=== PATIENT | male | born 1945 | race Caucasian/White ===

== ENCOUNTER → 2020-10-24 15:37 | Outpatient (CLI) | payer MEDICARE, SELFPAY ==
--- NOTE | 2020-10-24 15:45 | DI.RAD.S_ITS ---
PROCEDURE: XR LUMBAR SPINE MIN 4V INDICATIONS: Lumbar radiculopathy TECHNIQUE: 5 views of the lumbar spine were acquired, including bilateral oblique views. COMPARISON: None. FINDINGS: Bones: 5 nonrib-bearing vertebrae are present. There is normal bony alignment. No vertebral body compression fractures. No suspicious bony lesions. Mild degenerative disc changes noted throughout the lumbar spine. Soft tissues: Overlying bowel gas pattern is normal. No suspicious soft tissue calcifications. Oblique images: No pars defects. IMPRESSION: 1. Mild multilevel degenerative disc disease. 2. No fracture. No acute osseous lesion. If symptoms and/or clinical suspicion for pathology persists, evaluation with MRI should be considered for further assessment. Dictated by: Ghada Samano MD, PhD on 10/24/2020 at 16:04 Approved by: Ghada Samano MD, PhD on 10/24/2020 at 16:05
== END ==
PROVIDERS: PCP Nurse Practitioner Family; Referring Provider Physical Medicine & Rehabilitation; Visit Provider Physical Medicine & Rehabilitation
DX: M51.16 Intervertebral disc disorders with radiculopathy, lumbar region (principal)
CPT/HCPCS: 72110

== ENCOUNTER → 2021-10-01 11:40 | Outpatient (CLI) | payer MEDICARE, SELFPAY ==
--- NOTE | 2021-10-01 11:42 | DI.US.S_ITS ---
PROCEDURE: US PERIPH VENOUS LOW EXTREM LT INDICATIONS: EDEMA; LEFT FOOT LUMP TECHNIQUE: Real-time imaging, as well as color and pulse Doppler interrogation, were performed of the lower extremity deep veins from the inguinal ligament to the popliteal fossa. COMPARISON: None. FINDINGS: The common femoral, femoral and popliteal veins are normally compressible, and free of intraluminal thrombus. Color and pulse Doppler demonstrate normal phasic intraluminal flow. There is normal augmentation response to distal compression maneuver. In the area of the palpable abnormality the dorsum of the left foot, there is a subcutaneous hypoechoic lesion measuring 2.6 x 0.8 x 2.5 cm without internal vascularity. IMPRESSION: 1. No evidence of deep venous thrombosis, left lower extremity 2. Left foot palpable abnormality corresponds with a nonspecific nonvascular 2.5 cm hypoechoic lesion. Differential possibilities include resolving hematoma or seroma among other etiologies. Follow-up to resolution. Approved by: Andres Abraham M.D. on 10/01/2021 at 11:41
== END ==
PROVIDERS: PCP Nurse Practitioner Family; Referring Provider Nurse Practitioner Family; Visit Provider Nurse Practitioner Family
DX: M79.89 Other specified soft tissue disorders (principal); R22.42 Localized swelling, mass and lump, left lower limb
CPT/HCPCS: 93971

== ENCOUNTER 2023-05-27 10:10 | Day surgery (SDC) | payer MEDICARE, SELFPAY ==
--- NOTE | 2023-05-27 | PATH_ITS ---
[facility] Accession Number: [id number] No. of containers..01 Tissue . 01 Material submitted: . ANAL - ANAL BIOPSY . 01 Diagnosis: ANUS, BIOPSY: - LOW GRADE SQUAMOUS INTRAEPITHELIAL LESION WITH ACUTE INFLAMMATION (AIN 1 /CONDYLOMA ACUMINATUM) - NEGATIVE FOR HIGH GRADE DYSPLASIA OR CARCINOMA. TXN 06/06/2023 1445 Local . 01 Electronically signed: . Tawfeliliam Harris MD, Pathologist NPI- [id number] . 01 Gross description: . ANAL BIOPSY: Received in formalin are multiple fragment(s) of hensley, soft tissue measuring 0.1 x 0.1 x 0.1 cm to 0.2 x 0.2 x 0.2 cm submitted entirely in 1 cassette(s) /ROBBIE 05/28/2023 1938 Local . 01 Pathologist provided ICD-10: Z12.11 . 01 CPT . 024047 Performed at: 01 [facility] [address] [place] [address] [address], [place], [place] [id number] MD Raghav Shay MD Phone: [phone]
[2023-05-27 10:22] VITALS: BMI 21.2
[2023-05-27 10:36] VITALS: BP 168/99; PULSE 79; RESP 19; TEMP 36.5; O2SAT 98
[2023-05-27] MEDS: LACTATED RINGERS 1,000 ML 42 ML IV (10:37)
[2023-05-27] MEDS: FLEETS ENEMA 1 EACH PR (10:51)
--- NOTE | 2023-05-27 12:07 | P.HP_ITS ---
History of Present Illness History of Present Illness Date Patient Seen: 05/27/23 Time Patient Seen: 12:07 Chief complaint: Colonoscopy Narrative: heme positive FIT test, constipation. Last colonoscopy 2006 [facility] Medical History Dupuytren's contracture of both hands Herniated nucleus pulposus, lumbar Family History Mother Cancer Brother Diabetes mellitus Social History household members: significant other Smoking Status: Never smoker alcohol intake: current Meds Home Medications and Allergies Home Medications Medication Instructions Recorded Confirmed Type sildenafil 25 mg tablet 25 mg PO DAILY PRN other 10/11/21 05/27/23 History Allergies Allergy/AdvReac Type Severity Reaction Status Date / Time No Known Drug Allergies Allergy Verified 05/27/23 11:05 Review of Systems Review of Systems ROS: Yes All systems reviewed with the patient and are negative except as otherwise documented Exam Vital Signs (past 8 hours): - 05/27/23 10:36 Temperature 97.7 F Pulse Rate 79 Respiratory Rate 19 Blood Pressure 168/99 H Pulse Oximetry 98 Oxygen Delivery Method Room Air Oxygen Delivery Method Room Air Const General: cooperative and comfortable Nutritional Appearance: average body habitus HENMT Head: normocephalic and atraumatic Neck Neck: trachea midline Resp Effort & Inspection: normal respiratory effort and able to speak in complete sentences Cardio Rate: regular rate Rhythm: regular rhythm GI Palpation: soft and No tender Skin General: atrophy and dry skin Neuro General: patient alert, patient awake and patient oriented x3 Cognition: normal cognition Psych Mental Status: mental status grossly normal Judgment: judgment good Assessment & Plan Assessment & Plan narrative: Heme positive stool test Plan: colonoscopy with anesthesia
--- NOTE | 2023-05-27 12:43 | PM.OP.COLON ---
Operative Date/Time/Diagnoses Date of procedure: 05/27/23 Time of procedure: 12:43 Pre-op diagnosis: Heme positive fit test Post-op diagnosis: same Procedure & Clinicians Study performed: Colonoscopy with cold forceps biopsy Same procedure as scheduled: Yes Indications: Positive fit test Surgeon: Chinyere Morrow Procedure Notes Procedure in detail: Preop diagnosis: Positive fit test Postop diagnosis: Same Operative procedure: Colonoscopy with cold forceps biopsy in the anal region Surgeon: Yeni Morrow MD Anesthetic: Propofol Findings: Significant large diverticuli of the sigmoid colon. Poor bowel prep. Frondlike polyp emanating from the anal verge with cold forceps biopsies taken Procedure: Patient placed in a lateral position. Rectal exam performed showing normal tone and a frond like mass at the anal verge. Scope was inserted into the rectum and advanced to ileocecal valve with minimal difficulty. Insufflation extraction scope including retroflex had the above findings. Impression: Severe diverticulosis of the sigmoid colon. Poor bowel prep however no large masses identified. Biopsies taken of a frondlike polyp at the anal verge and sent for permanent path. Plan: Repeat colonoscopy in 5 years. Await pathology. Findings: divertiulosis and polyp(s) Specimen(s): other Complications: none
[2023-05-27 12:46] VITALS: BP 141/86; PULSE 72; RESP 11; TEMP 36.3; O2SAT 99
[2023-05-27 12:52] VITALS: BP 146/84; PULSE 72; RESP 14; O2SAT 97
[2023-05-27 12:57] VITALS: BP 143/83; PULSE 83; RESP 13; TEMP 36.6; O2SAT 97
[2023-05-27 13:01] VITALS: BP 154/88; PULSE 69; RESP 19; O2SAT 97
== END 2023-05-27 13:18 | disposition home or self-care (01) ==
PROVIDERS: Referring Provider Surgery; Visit Provider Surgery
PROC: 0DJD8ZZ Inspection of Lower Intestinal Tract, Via Natural or Artificial Opening Endoscopic (ICD-10-PCS; CPT 45378; principal; 2023-05-27 11:15)
DX: Z12.11 Encounter for screening for malignant neoplasm of colon (principal); R19.5 Other fecal abnormalities; K57.30 Diverticulosis of large intestine without perforation or abscess without bleeding; K62.82 Dysplasia of anus
CPT/HCPCS: 45380

== ENCOUNTER → 2024-10-01 13:42 | Outpatient (CLI) | payer MEDICARE, SELFPAY | PROVIDERS: Referring Provider Orthopaedic Surgery; Visit Provider Surgery | DX: S61.402A Unspecified open wound of left hand, initial encounter (principal); L92.8 Other granulomatous disorders of the skin and subcutaneous tissue; L91.8 Other hypertrophic disorders of the skin | CPT/HCPCS: 17250; 99203; 99213 ==

== ENCOUNTER → 2024-10-07 11:34 | Outpatient (CLI) | payer MEDICARE, SELFPAY | LOC: WC 10-26 11:35 | PROVIDERS: Visit Provider Surgery | DX: L91.8 Other hypertrophic disorders of the skin (principal); S61.402D Unspecified open wound of left hand, subsequent encounter | CPT/HCPCS: 11106; 99212 ==

== ENCOUNTER → 2024-10-14 11:50 | Outpatient (CLI) | payer MEDICARE, SELFPAY | PROVIDERS: Visit Provider Surgery | DX: T81.89XD Other complications of procedures, not elsewhere classified, subsequent encounter (principal); S61.402D Unspecified open wound of left hand, subsequent encounter; L91.8 Other hypertrophic disorders of the skin | CPT/HCPCS: 99212; 99213 ==